=== PATIENT | female | born 1990 | race Two or more races ===

== ENCOUNTER 2024-06-10 09:09 | Emergency (ER) | payer OTHER, SELFPAY ==
[2024-06-10 09:09] VITALS: BMI 31.9
[2024-06-10 09:17] VITALS: BP 108/81; PULSE 76; RESP 16; TEMP 37.1; O2SAT 100
--- NOTE | 2024-06-10 09:22 | XR_ITS ---
Examination: Complete OB ultrasound, less than 14 weeks, transabdominal Date and time of exam: June 10, 2024, 1104 hours INDICATIONS: Onset vaginal bleeding today Technique: Obstetrical ultrasound images less than 14 weeks performed via transabdominal imaging Findings: A normal shaped single intrauterine gestation is present in the uterus. CRL 6.7 cm corresponds to 13 weeks 0 days gestational age Cardiac motion 164 BPM Ultrasonographic survey of visible and placental structures unremarkable. Amniotic fluid volume appears appropriate for this estimated gestational age. Right ovary 3.2 cm arterial flow. Left ovary 3.6 cm arterial flow IMPRESSION: Viable intrauterine gestation 13 weeks 0 days No subchorionic hemorrhage.
--- NOTE | 2024-06-10 09:22 | PD.EDPREG ---
ED OB Contraction Preg RMI/HPI General Chief complaint: OB/Uterine Contractions Stated complaint: PREG 13WKS, BLEEDING/CRAMPING STARTED SUNDAY Time Seen by Provider: 06/10/24 10:34 Source: patient Arrival date/time: 06/10/24 09:09 34-year-old female with a history of a molar presents to the emergency room with a chief complaint of vaginal bleeding and abdominal cramping that began 3 days ago. Patient is currently 13 weeks . Patient is a G3, P1. Mode of arrival: ambulatory Limitations: no limitations Related Data Allergies Allergy/AdvReac Type Severity Reaction Status Date / Time No Known Allergies Allergy Verified 06/10/24 09:12 Review of Systems Review of Systems Systems Reviewed: All systems reviewed, normal except as documented Constitutional Constitutional: Reports system reviewed and no additional complaints, except as documented, Denies fatigue, Denies fever(s), Denies headache(s) and Denies weakness Eyes Eyes: Reports system reviewed and no additional complaints, except as documented, Denies blurry vision and Denies change in vision ENT Ears, Nose, Mouth, and Throat: Reports system reviewed and no additional complaints, except as documented, Denies otalgia, Denies headache(s), Denies nasal congestion, Denies throat swelling and Denies vertigo Cardiovascular Cardiovascular: Reports system reviewed and no additional complaints, except as documented, Denies chest pain, Denies dyspnea and Denies dyspnea on exertion Respiratory Respiratory: Reports system reviewed and no additional complaints, except as documented, Denies chest congestion, Denies cough, Denies dyspnea, Denies dyspnea on exertion and Denies wheezing Gastrointestinal Gastrointestinal: Reports system reviewed and no additional complaints, except as documented, Denies abdominal pain, Reports cramping, Denies nausea and Denies vomiting Genitourinary Genitourinary: Reports system reviewed and no additional complaints, except as documented and Reports abnormal vaginal bleeding Musculoskeletal Musculoskeletal: Reports system reviewed and no additional complaints, except as documented and Denies back pain Integumentary/Breasts Skin/Breast: Reports system reviewed and no additional complaints, except as documented and Denies wounds Neurologic Neurologic: Reports system reviewed and no additional complaints, except as documented, Denies confusion, Denies headache(s), Denies lack of coordination, Denies vertigo and Denies weakness Psychiatric Psychiatric: Reports system reviewed and no additional complaints, except as documented, Denies anxiety, Denies confusion, Denies depression, Denies paranoia, Denies suicidal ideation and Denies tactile hallucinations Endocrine Endocrine: Reports system reviewed and no additional complaints, except as documented and Denies fatigue Hematologic/Lymphatic Hematologic/Lymphatic: Reports system reviewed and no additional complaints, except as documented and Denies lymphadenopathy Allergic/Immunologic Allergic/Immunologic: Reports system reviewed and no additional complaints, except as documented, Denies throat swelling, Denies urticaria and Denies wheezing Past Medical History Social History SMOKING STATUS: Never smoker ED Exam General Limitations: Present no limitations General appearance: Present alert and in no apparent distress Head Head exam: Present atraumatic Eye Eye exam: Present normal appearance, PERRL and EOMI ENT ENT exam: Present normal exam, normal oropharynx and mucous membranes moist Neck Neck exam: Present normal inspection, full ROM and trachea midline Chest Chest inspection: Present normal inspection and symmetric chest wall rise Respiratory Respiratory exam: Present normal lung sounds bilaterally Cardiovascular Cardiovascular exam: Present regular rate, normal rhythm and normal heart sounds Abdominal Exam Abdominal exam: Present soft, tenderness and normal bowel sounds Abdominal tenderness: Present suprapubic and mild Extremities Exam Extremities exam: Present normal inspection and full ROM Back Exam Back exam: Present normal inspection and full ROM Neurological Exam Neurological exam: Present alert, oriented X3 and CN II-XII intact Psychiatric Psychiatric exam: Present normal affect and normal mood Skin Skin exam: Present warm, dry, intact and normal color Course Quality Measures none Orders Category Date Time Status US OB <= 14 weeks fetus Stat Exams 06/10/24 09:22 Completed ABO/RH Type Stat Lab 06/10/24 09:56 Completed Beta HCG,Quantitative Stat Lab 06/10/24 09:56 Completed CBC Stat Lab 06/10/24 09:56 Completed CMP [Comprehensive Metabolic Panel] Stat Lab 06/10/24 09:56 Completed UA [Urinalysis] Stat Lab 06/10/24 10:08 Completed Vital Signs Vital signs: Vital Signs Temperature 98.8 F 06/10/24 09:17 Pulse Rate 76 06/10/24 09:17 Respiratory Rate 16 06/10/24 09:17 Blood Pressure 108/81 06/10/24 09:17 Pulse Oximetry (%) 100 06/10/24 09:17 Oxygen Delivery Method Room Air 06/10/24 09:17 O2 saturation 100% within normal limits OB/Uterine Contractions MDM Narrative MDM Narrative:: 34-year-old female with a history of a molar presents to the emergency room with a chief complaint of vaginal bleeding and abdominal cramping that began 3 days ago. Patient is currently 13 weeks . Patient is a G3, P1. Patient is hemodynamically stable and in no apparent distress Physical examination shows a soft nontender abdomen. Patient denies any pain and states that it is only mild cramping. Patient states she is having vaginal spotting when she wipes. An ultrasound was completed and shows a viable at 13 weeks. heart tones are at 166 bpm. hCG levels are at 58,967. Patient was educated to follow-up with her OPTOMECHANICAL ENGINEER in the next 24 to 48 hours and return to the emergency room for any evidence of worsening signs or symptoms Patient data External records reviewed:: [facility] previous records Clinical information provided by:: patient Social determinants that could affect healthcare access:: none Patient has the following chronic illnesses:: No chronic illness How is presenting disease/condition affected by chronic disease/condition?: no chronic disease Evaluation data The following diagnostics were reviewed and interpreted by me:: lab results and radiology exam(s) Lab and/or radiology exams considered but not ordered:: Labs and radiology exams considered and ordered Interpretation Summary: OB ultrasound-Findings: A normal shaped single intrauterine gestation is present in the uterus. CRL 6.7 cm corresponds to 13 weeks 0 days gestational age Cardiac motion 164 BPM Ultrasonographic survey of visible and placental structures unremarkable. Amniotic fluid volume appears appropriate for this estimated gestational age. Right ovary 3.2 cm arterial flow. Left ovary 3.6 cm arterial flow IMPRESSION: Viable intrauterine gestation 13 weeks 0 days No subchorionic hemorrhage. Medications / Prescriptions Medications or Prescriptions considered but not ordered:: No medication given Medication administrations:: No medication given Consultations Consultation(s) initiated? (list below): No Diagnosis OB Contractions Differential Diagnosis: other (Spontaneous /vaginal bleeding/threatened ) Most likely diagnosis given after review of the tests above:: Vaginal bleeding Admission Indicated Admission indicated?: not indicated Explain why admission is indicated or not indicated:: N/A Admission Request Was there a request for admission?: No Disposition Plan Disposition Plan: Discharge Discharge Attestation Discharge Attestation: The patient and all family members were given an opportunity to ask questions and understood the discharge instructions. Discharge instructions specifically effects, indications for sooner follow up or return to the emergency department, and the expected course of current diagnosis. Patient condition: Stable Discharge Plan Plan Patient Disposition: HOME (Self Care) Disposition Comment: Stable Prescriptions/Referrals Referrals: No Primary/Family,Physician [Primary Care Provider] - In 1 week Problem List Clinical Impression: Vaginal bleeding affecting early Patient/Caregiver Discharge Instructions Education Materials: Bleeding During Early Additional Instructions: At this time your is in good standing. You are currently 13 weeks Your heart tones are at 166 bpm. Your hCG levels are 58,967. Please follow-up with your OPTOMECHANICAL ENGINEER in the next 48 to 72 hours. For any evidence of worsening signs or symptoms return to the emergency room immediately Print Language: Portuguese Stand Alone Forms: Giselle Award Info., Patient Portal Info Letter PA/BONDED STRUCTURES REPAIRER Supervising Physician PA/VIDYA Supervising Physician: Dr. Zheng
[2024-06-10 10:13] LABS: Basophils % (Auto) 0 % (0-2.5); Eosinophils # (Auto) 0.1 Thou/mm3 (0.0-0.5); Eosinophils % (Auto) 1 % (0-10); Hematocrit 34.1 % (36.0-46.0); Hemoglobin 12.1 g/dL (12.0-16.0); Immature Granulocytes % (Auto) 0 % (0-0); Immature Granulocytes Auto 0.04 Thou/mm3 (0.00-0.00); Lymphocytes # (Auto) 1.4 Thou/mm3 (1.0-4.8); Lymphocytes % (Auto) 15 % (10-50); Mean Corpuscular HGB Conc 35.5 g/dl (31.0-37.0); Mean Corpuscular Hemoglobin 30.9 pg (25.0-35.0); Mean Corpuscular Volume 87 fL (80-100); Monocytes # (Auto) 0.5 Thou/mm3 (0.0-0.8); Monocytes % (Auto) 5 % (0-12); Neutrophils # (Auto) 7.5 Thou/mm3 (1.8-7.7); Neutrophils % (Auto) 79 % (37-80); Nucleated Red Blood Cell % 0 /100 WBC (0); Platelet Count 287 Thou/mm3 (140-440); RDW Standard Deviation 40.4 fL (36.4-46.3); Red Blood Count 3.92 Miln/mm3 (4.00-5.20); White Blood Count 9.5 Thou/mm3 (3.6-11.0)
[2024-06-10 10:14] LABS: Collection Type, Urine Clean Catch
[2024-06-10 10:24] LABS: Bacteria,Urine Rare; Bilirubin,Urine Negative (Negative); Blood,Urine Trace (Negative); Clarity,Urine Clear (Clear/Hazy); Color,Urine Yellow (Lt Yel-Yel); Glucose, Urine Negative (Negative); Ketones,Urine Trace (Negative); Leukocyte Esterase,Urine Negative (Negative); Nitrite,Urine Negative (Negative); Protein,Urine Trace (Neg - Trace); RBC,Urine 6 /hpf (0-3); Specific Gravity,Urine 1.032 (1.001-1.035); Squamous Epithelial Cell,Urine 1 /hpf (0-5); Urobilinogen,Urine Negative mg/dL (0.0-1.0); WBC,Urine 1 /hpf (0-5)
[2024-06-10 10:41] LABS: Alanine Aminotransferase 11 U/L (10-49); Albumin, Serum 4.2 gm/dL (3.5-5.0); Alkaline Phosphatase 62 U/L (46-116); Anion Gap 8 (7-16); Aspartate Amino Transferase 17 U/L (0-34); BUN/Creatinine Ratio 12 Ratio (12-20); Bilirubin,Total 0.4 mg/dL (0.3-1.2); Blood Urea Nitrogen 7 mg/dL (9-23); Chloride 108 mMol/L (98-107); Creatinine (Component) 0.6 mg/dL (0.6-1.3); Estimated Creatinine Clearance 142.6 mL/min (>60); Glucose 103 mg/dL (74-106); Osmolality,Calculated 271 (275-295); Potassium 3.7 mMol/L (3.4-5.1); Sodium 137 mMol/L (136-145); eGFR > 60 See Note
[2024-06-10 11:08] LABS: Albumin/Globulin Ratio 1.7 (1.2-2.2); Beta HCG,Quantitative 58967 mIU/mL (<5.0); Globulin 2.5 gm/dL (2.3-3.5); Total Protein 6.7 gm/dL (5.7-8.2)
== END 2024-06-10 12:17 | disposition home or self-care (01) ==
PROVIDERS: Nurse Practitioner Family; Emergency Provider Emergency Medicine
DX: O20.9 Hemorrhage in early pregnancy, unspecified (principal); Z3A.13 13 weeks gestation of pregnancy
CPT/HCPCS: 36415; 76801; 80053; 81001; 84702; 85025; 86900; 86901; 99284

== ENCOUNTER 2024-12-01 05:33 | Inpatient (IN) | payer OTHER, SELFPAY ==
[2024-11-28 11:48] LABS: Basophils # (Auto) 0.0 Thou/mm3 (0.0-0.2); Basophils % (Auto) 0 % (0-2.5); Eosinophils # (Auto) 0.1 Thou/mm3 (0.0-0.5); Eosinophils % (Auto) 1 % (0-10); Hematocrit 33.4 % (36.0-46.0); Hemoglobin 11.2 g/dL (12.0-16.0); Immature Granulocytes Auto 0.13 Thou/mm3 (0.00-0.00); Lymphocytes # (Auto) 1.7 Thou/mm3 (1.0-4.8); Lymphocytes % (Auto) 15 % (10-50); Mean Corpuscular HGB Conc 33.5 g/dl (31.0-37.0); Mean Corpuscular Hemoglobin 29.0 pg (25.0-35.0); Mean Corpuscular Volume 87 fL (80-100); Monocytes # (Auto) 0.6 Thou/mm3 (0.0-0.8); Monocytes % (Auto) 5 % (0-12); Neutrophils # (Auto) 9.4 Thou/mm3 (1.8-7.7); Neutrophils % (Auto) 79 % (37-80); Nucleated Red Blood Cell # 0.00 Thou/mm3 (0.00-0.00); Nucleated Red Blood Cell % 0 /100 WBC (0); Platelet Count 314 Thou/mm3 (140-440); RDW Standard Deviation 42.9 fL (36.4-46.3); Red Blood Count 3.86 Miln/mm3 (4.00-5.20); White Blood Count 12.0 Thou/mm3 (3.6-11.0)
[2024-11-28 12:05] LABS: INR 1.0 (0.9-1.3); Partial Thromboplastin Time 26.6 Seconds (22.0-36.0); Prothrombin Time 10.3 Seconds (9.0-12.2)
[2024-11-28 12:18] LABS: Alanine Aminotransferase 9 U/L (10-49); Albumin, Serum 4.0 gm/dL (3.5-5.0); Albumin/Globulin Ratio 1.7 (1.2-2.2); Alkaline Phosphatase 125 U/L (46-116); Anion Gap 10 (7-16); Aspartate Amino Transferase 21 U/L (0-34); BUN/Creatinine Ratio 10 Ratio (12-20); Bilirubin,Total 0.6 mg/dL (0.3-1.2); Blood Urea Nitrogen 6 mg/dL (9-23); Calcium 9.4 mg/dL (8.3-10.6); Calcium (Corrected) 9.4 mg/dL (8.5-10.1); Carbon Dioxide 23.3 mMol/L (20.0-31.0); Chloride 105 mMol/L (98-107); Creatinine (Component) 0.6 mg/dL (0.6-1.3); Globulin 2.4 gm/dL (2.3-3.5); Glucose 109 mg/dL (74-106); Osmolality,Calculated 274 (275-295); Potassium 4.0 mMol/L (3.4-5.1); Sodium 138 mMol/L (136-145); Total Protein 6.4 gm/dL (5.7-8.2); eGFR > 60 See Note
[2024-11-28 12:37] LABS: Syphilis Nonreactive (Nonreactive)
--- NOTE | 2024-11-28 19:11 | ESHP_ITS ---
RE: AYO ESTRADA : 1990 DATE OF ADMISSION: 12/01/2024 HISTORY OF PRESENT ILLNESS: This is a 34-year-old 3 para 1-0-1-1 with due date of 12/15/2024 with intrauterine at 38 weeks and 0 days on 12/01/2024, who presents for repeat delivery. is complicated by chronic hypertension and intrauterine growth restriction. The most recent ultrasound by maternal medicine showed the overall growth at the 4th percentile with the abdominal circumference at the 2nd percentile. Her antepartum testing has been reassuring, which has included twice weekly anesthesia and weekly AFIs. Her care was complicated by gestational diabetes mellitus, class A1. ALLERGIES: NO KNOWN DRUG ALLERGIES. MEDICATIONS: 1. multivitamin 1 p.o. daily. 2. Aspirin 81 mg 1 p.o. daily. 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 SOCIAL HISTORY: She denies any alcohol or drug use or smoking. FAMILY HISTORY: Daughter has congenital heart disease with a history of open heart surgery. 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 PAST SURGICAL HISTORY: delivery in 2020 and D and C in 2014. REVIEW OF SYSTEMS: She denies any chest pain, palpitations, cough, fever, shortness of breath or lower extremity pain. She denies any headache, change in vision or right upper quadrant pain. PHYSICAL EXAMINATION: VITAL SIGNS: Blood pressure 133/72, heart rate 88, respirations 18, temperature 98.6, and weight 211 pounds. HEENT: Oropharynx and sclerae are clear. LUNGS: Clear to auscultation bilaterally. HEART: Regular rate and rhythm. ABDOMEN: Gravid. Fundus is 36 cm. EXTREMITIES: Nontender. SKIN: No gross rashes or lesions. NEUROLOGIC: No focal deficit. ASSESSMENT: Intrauterine at 38 weeks and 0 days on 12/01/2024, systolic hypertension, intrauterine growth restriction, previous delivery, elects to repeat delivery, and gestational diabetes mellitus, class A1, well controlled. PLAN: Repeat delivery. Informed consent was obtained. The patient was made aware of the risks, complications, alternatives, and benefits of the proposed procedure and she agrees. The patient declined Abrysvo RSV vaccine between 32 and 37 weeks' gestation. DT: 18:42:10 TT: 19:09:00 Ref: [id number] - TID: [id number] MTDD
[2024-12-01] VITALS (34 sets, daily range): BP systolic 100–139; BP diastolic 60–88; PULSE 68–93; RESP 14–21; TEMP 36.7–36.8; O2SAT 95–100; BMI 34.9
[2024-12-01] MEDS: RINGERS LACTATED 1000 ML 1,000 ML 100 ML IV ×2 (05:40→06:46)
[2024-12-01 06:16] LABS: Basophils # (Auto) 0.0 Thou/mm3 (0.0-0.2); Basophils % (Auto) 0 % (0-2.5); Eosinophils # (Auto) 0.1 Thou/mm3 (0.0-0.5); Eosinophils % (Auto) 1 % (0-10); Hematocrit 33.9 % (36.0-46.0); Hemoglobin 11.6 g/dL (12.0-16.0); Immature Granulocytes Auto 0.13 Thou/mm3 (0.00-0.00); Lymphocytes # (Auto) 2.5 Thou/mm3 (1.0-4.8); Lymphocytes % (Auto) 19 % (10-50); Mean Corpuscular HGB Conc 34.2 g/dl (31.0-37.0); Mean Corpuscular Hemoglobin 29.6 pg (25.0-35.0); Mean Corpuscular Volume 87 fL (80-100); Monocytes # (Auto) 0.7 Thou/mm3 (0.0-0.8); Monocytes % (Auto) 6 % (0-12); Neutrophils # (Auto) 9.7 Thou/mm3 (1.8-7.7); Neutrophils % (Auto) 73 % (37-80); Nucleated Red Blood Cell # 0.00 Thou/mm3 (0.00-0.00); Nucleated Red Blood Cell % 0 /100 WBC (0); Platelet Count 324 Thou/mm3 (140-440); RDW Standard Deviation 42.9 fL (36.4-46.3); Red Blood Count 3.92 Miln/mm3 (4.00-5.20); White Blood Count 13.3 Thou/mm3 (3.6-11.0)
[2024-12-01 06:55] LABS: Syphilis Nonreactive (Nonreactive)
[2024-12-01] MEDS: FAMOTIDINE INJ 10 MG/ML VIAL 2 ML 20 MG IV (07:18)
[2024-12-01] MEDS: ceFAZolin/D5W 2 GM IV 2 GM/100 ML BAG IV (07:18)
[2024-12-01] MEDS: CITRIC ACID/SODIUM CITR 15 ML UDC (BICITRA) 30 ML PO (07:18)
--- NOTE | 2024-12-01 07:51 | ESDS_ITS ---
DS: Providers Provider Date of admission: 12/01/24 05:33 Primary care physician: Physician No Primary/Family Admitting Provider: Sujit Reid MD Attending Provider on Admission: Sujit Reid MD Attending Provider on DC: Sujit Reid MD Discharging Provider: Sujit Reid MD DS: Diagnosis Problem List Completed Was Problem List Reviewed/Reconciled?: Yes Summary/Hosp Course Peripartum Data Procedures: Procedures Operation Date: 12/01/24 07:45 <No data on this case meets the specified criteria> Time Spent with Patient Time attestation: Total time spent providing and/or coordinating discharge services: Exam Vital Signs Pulse BP Pulse Ox 93 116/60 99 12/01/24 05:58 12/01/24 05:58 12/01/24 07:30 Discharge Plan Prescriptions/Referrals Prescriptions/Med Rec: No Action aspirin 81 mg tablet,delayed release (DR/EC) Patient Comments: TAKE 1 TABLET BY MOUTH EVERY DAY folic acid 1 mg tablet Patient Comments: Take 1 tablet by mouth once a day M-[place] Plus 27 mg iron- 1 mg tablet Patient Comments: TAKE 1 TABLET BY MOUTH EVERY DAY Referrals: No Primary/Family,Physician [Primary Care Provider] Patient/Caregiver Discharge Instructions Education Materials: C Section Dc Print Language: Romanian Planned Discharge Date 12/03/24
--- NOTE | 2024-12-01 07:51 | ESOP_ITS ---
Operative Note - ELECTRONICS WORKER Procedure Date of procedure: 12/01/24 Procedure Performed: Repeat low-transverse section via Pfannenstiel skin incision Indication: Intrauterine at 38 weeks and 0 days Systolic hypertension Intrauterine growth restriction GDMA1 Previous delivery elective repeat delivery Pre-Op diagnosis: Intrauterine at 38 weeks and 0 days Systolic hypertension IUGR GDMA1 Previous delivery elective repeat delivery Post-Op diagnosis: Intrauterine at 38 weeks and 0 days Systolic hypertension IUGR GDMA1 Previous delivery elective repeat delivery Anesthesia type: Spinal Procedure description: After proper informed consent was obtained and the patient was made aware of the risks, complications, alternatives and benefits of the proposed procedure she was taken to the operating room where she underwent induction of spinal anesthesia. She was prepped and draped in the usual sterile fashion. A timeout was performed.? A Pfannenstiel skin incision was made with the scalpel and carried through to the underlying layer of fascia with the Bovie. The fascia was nicked in the midline incision and the incision was extended bilaterally with the Bovie. The inferior aspect of the fascial incision was grasped with Reagan clamps elevated and the underlying rectus muscle dissected off with the Bovie. The superior aspect the fascial incision was grasped with Reagan clamps elevated and the underlying rectus muscle dissected off with the Bovie. The rectus muscles were in the midline. The peritoneum was grasped between 2 Morrison clamps and entered sharply with the Metzenbaum scissors. The peritoneum was extended superiorly and inferiorly with good visualization of the bladder. The vesicouterine peritoneum was incised transversely and the bladder flap created digitally. A Blanca blade was inserted. A low transverse incision was made in the uterus with a scapel and the incision was extended digitally. The infant's head delivered and the mouth and nose were suctioned with the bulb suction. The shoulder and body delivered atraumatically. The cord was clamped after 30 second delayed cord clamping and the cord was cut.? The infant was handed off to the waiting Pediatric staff, cord blood was collected for lab testing. The placenta was removed complete and intact. The uterus was exteriorized and cleared of all clots and debris. The uterine incision was closed with #1-0 chromic catgut suture in a running interlocking fashion. A second layer of the same suture was used to imbricate the first layer and obtain excellent hemostasis. The vesicouterine peritoneum was closed with 2-0 chromic catgut suture in a running fashion. The firm uterus was returned to the abdomen. The gutters were cleared of all clots and debris. The peritoneum was closed with 0 chromic catgut suture in running fashion. The rectus muscle was closed with 0 chromic catgut suture. The fascia was closed with 0 Vicryl beginning at each angle and ending in the center in a running fashion. The subcutaneous tissue was irrigated with warmed normal saline solution and found to be hemostatic. The subcutaneous tissue was closed with 2-0 chromic catgut suture in a running fashion. The skin was closed with 4-0 Monocryl. A Dermabond Prineo dressing was applied and a sterile pressure dressing was applied.? She tolerated the procedure well. Counts were correct. I discussed with the patient the nature of her condition, intraoperative findings and expectation for recovery all? questions answered. Specimen: none Estimated blood loss (ml): 500 Findings: Live baby girl APGARS: See RN notes. Amniotic fluid clear Weight: See RN notes Cephalic. Uterus, ovaries and tubes wnl. Complications: none Surgical staff Jonh Salinas CRNA, Neil Candelario's RAG WILLOW OPERATOR , Dr Reid Surgeon Operation Date: 12/01/24 07:45 <No data on this case meets the specified criteria> Diagnosis Problem List Completed Was Problem List Reviewed/Reconciled?: Yes
[2024-12-01] MEDS: OXYTOCIN in NS 20 units 20 UNIT/1,000 ML BAG 125 UNIT IV ×2 (10:16→18:14)
[2024-12-01 14:24] LABS: Basophils # (Auto) 0.0 Thou/mm3 (0.0-0.2); Basophils % (Auto) 0 % (0-2.5); Eosinophils # (Auto) 0.0 Thou/mm3 (0.0-0.5); Eosinophils % (Auto) 0 % (0-10); Hematocrit 29.6 % (36.0-46.0); Hemoglobin 10.1 g/dL (12.0-16.0); Immature Granulocytes Auto 0.11 Thou/mm3 (0.00-0.00); Lymphocytes # (Auto) 1.7 Thou/mm3 (1.0-4.8); Lymphocytes % (Auto) 11 % (10-50); Mean Corpuscular HGB Conc 34.1 g/dl (31.0-37.0); Mean Corpuscular Hemoglobin 29.7 pg (25.0-35.0); Mean Corpuscular Volume 87 fL (80-100); Monocytes # (Auto) 0.8 Thou/mm3 (0.0-0.8); Monocytes % (Auto) 5 % (0-12); Neutrophils # (Auto) 12.8 Thou/mm3 (1.8-7.7); Neutrophils % (Auto) 83 % (37-80); Nucleated Red Blood Cell # 0.00 Thou/mm3 (0.00-0.00); Nucleated Red Blood Cell % 0 /100 WBC (0); Platelet Count 253 Thou/mm3 (140-440); RDW Standard Deviation 43.1 fL (36.4-46.3); Red Blood Count 3.40 Miln/mm3 (4.00-5.20); White Blood Count 15.5 Thou/mm3 (3.6-11.0)
[2024-12-01] MEDS: KETOROLAC INJ 30 MG/ML VIAL IVP (18:31)
[2024-12-02 00:18] VITALS: BP 110/63; PULSE 68; RESP 16; TEMP 36.7; O2SAT 97
[2024-12-02 03:52] VITALS: BP 109/71; PULSE 71; RESP 16; TEMP 36.9; O2SAT 96
--- NOTE | 2024-12-02 07:01 | PD.LDPPPRG ---
Subjective Subjective Interval history: Patient denies any primary complaint. She is voiding and ambulating and tolerating a regular diet and passing flatus. She denies any nausea or vomiting. She denies any excessive vaginal bleeding. She denies any dizziness or lightheadedness. She denies any chest pain palpitations shortness of breath or lower extremity pain. Exam Vital Signs Temp Pulse Resp BP Pulse Ox O2 Del Method 98.5 F 71 16 109/71 96 Room Air 12/02/24 03:52 12/02/24 03:52 12/02/24 03:52 12/02/24 03:52 12/02/24 03:52 12/02/24 03:52 Routine Respiratory Exam Comments: Clear to auscultation bilaterally Routine Cardiovascular Exam Comments: Regular rate and rhythm Routine Abdominal Exam Comments: Dressing dry and intact fundus is firm nondistended Routine Extremities Exam Comments: Nontender Objective Labs 12/01/24 14:00 11/28/24 11:31 Labs: Laboratory Results - last 24 hr 12/01/24 12/01/24 06:00 14:00 WBC 15.5 H RBC 3.40 L Hgb 10.1 L Hct 29.6 L MCV 87 MCH 29.7 MCHC 34.1 RDW Std Deviation 43.1 Plt Count 253 D Neut % (Auto) 83 H Lymph % (Auto) 11 [place] % (Auto) 5 Eos % (Auto) 0 Baso % (Auto) 0 Neut # (Auto) 12.8 H Lymph # (Auto) 1.7 [place] # (Auto) 0.8 Eos # (Auto) 0.0 Baso # (Auto) 0.0 Immature Gran # (Auto) 0.11 H Absolute Nucleated RBC 0.00 Immature Gran % 1 H Nucleated RBC % 0 Blood Type O Positive Antibody Screen NEGATIVE Blood Bank Wristband ID Yes Impressions Impression: Postop day #1 status post delivery Remove dressing, encourage ambulation, support, possible discharge home tomorrow Assessment & Plan Time Spent With Patient Time: Total time spent is greater than 50% in coordination of care (as documented) at patient's floor/unit and/or counseling patient:
[2024-12-02 08:00] VITALS: BP 110/72; PULSE 73; RESP 16; TEMP 36.4; O2SAT 98
[2024-12-02] MEDS: DOCUSATE SOD 100 MG CAPSULE PO (08:13)
[2024-12-02] MEDS: KETOROLAC INJ 30 MG/ML VIAL IVP (09:32)
--- NOTE | 2024-12-02 12:24 | OBDSUM_ITS ---
Data ([place]) Data Hx Section: No : 3 Delivery Data ([place]) Labor Data ROM date: 12/01/24 ROM time: 08:04 Amniotic membrane rupture type: Artificial Amniotic fluid description: Clear Delivery Data EDC: 12/15/24 EDC calculated by:: LMP/early US confirmation [place] delivery date: 12/01/24 delivery time: 08:05 Gestational age (weeks): 38 Gestational age (days): 0 Placenta delivery date: 12/01/24 Placenta delivery time: 08:05 Delivered by: Sujit Reid Delivery nurse: MODESTO Adams [place] nurse: MODESTO Alvarado [employer]cher[employer] Superintendent at delivery: No Support person(s) at delivery: FOB Other staff at delivery: BPrema Student Nurse M.[employer] Student Nurse Delivery Method Delivery method: Low Transverse Presentation: Vertex position: OP Anesthesia Type Anesthesia Type: Spinal Anesthesia type: Spinal Placenta Placenta delivery description: Manual Removal Cord blood sent to lab: Yes cord blood collection: Cord Blood Type EBL Estimated blood loss (ml): 600 Complications Complications: None [place] Data ([place]) Data order: 1 's gender: Female Identification band number: [id number] weight (gms): 5 lb 12.418 oz Weight (pounds): 5 lbs and 12.4 ozs length: 19.5 in 1 minute: 8 5 minutes: 9
[2024-12-02] MEDS: ACETAMINOPHEN 325 MG TABLET 650 MG PO (15:46)
[2024-12-02 16:00] VITALS: BP 134/83; PULSE 67; RESP 16; TEMP 36.4; O2SAT 98
[2024-12-02 20:00] VITALS: BP 112/66; PULSE 83; RESP 18; TEMP 37.1; O2SAT 98
[2024-12-02] MEDS: ACETAMINOPHEN 325 MG TABLET PO (20:47)
--- NOTE | 2024-12-03 07:28 | ESPR_ITS ---
RE: AYO ESTRADA : 1990 DATE OF SERVICE: 12/03/2024 S: Postop day #2: The patient denies any prior complaints. O: Vital Signs: Stable. She is afebrile. Abdomen: Incision clear and intact. Extremities: Nontender. ASSESSMENT: Postoperative day #2 status post delivery. PLAN: Discharge home. Discharge instructions given. Follow up in the office in 1 week. DT: 07:04:27 TT: 07:26:00 Ref: [id number] - TID: [id number]
[2024-12-03 07:35] VITALS: BP 112/76; PULSE 83; RESP 18; TEMP 36.7; O2SAT 96
[2024-12-03] MEDS: DOCUSATE SOD 100 MG CAPSULE PO (07:38)
[2024-12-03] MEDS: ACETAMINOPHEN 325 MG TABLET 650 MG PO ×2 (07:38→14:05)
[2024-12-03 11:25] VITALS: BP 120/81; PULSE 66; RESP 18; TEMP 36.9; O2SAT 97
== END 2024-12-03 14:50 | disposition home or self-care (01) | DRG 787 ==
LOC: S4SX 06:48 → S4NX 08:11
PROVIDERS: Admitting Provider Specialist; Visit Provider Specialist
PROC: 10D00Z1 Extraction of Products of Conception, Low, Open Approach (ICD-10-PCS; CPT 59514; principal; 2024-12-01 07:30)
DX: O34.211 Maternal care for low transverse scar from previous cesarean delivery (principal); O10.92 Unspecified pre-existing hypertension complicating childbirth; O36.5990 Maternal care for other known or suspected poor fetal growth, unspecified trimester, not applicable or unspecified; Z37.0 Single live birth; O24.420 Gestational diabetes mellitus in childbirth, diet controlled; Z3A.38 38 weeks gestation of pregnancy; O36.5930 Maternal care for other known or suspected poor fetal growth, third trimester, not applicable or unspecified
CPT/HCPCS: 36415; 59409; 80053; 85025; 85610; 85730; 86780; 86850; 86900; 86901; 94762; A4217; A4314; A4649; J0689; J1885; J2274; J2590; J3490; J7120; A9270; J2270